=== PATIENT | female | born 1940 ===

== ENCOUNTER 2021-09-15 03:17 | Inpatient (IN) | payer MEDICARE ==
[2021-09-15 04:00] LABS: #Eosinphils 0.1 thou/uL (0.0-0.7); #Lymphocytes 0.6 thou/uL (1.20-3.40); #Monocytes 0.7 thou/uL (0.11-0.59); #Neutrophils 7.2 thou/uL (1.40-6.50); %Basophils 0.5 % (0.0-1.0); %Eosinophils 1.3 % (0.0-10.0); %Lymphocytes 6.7 % (21.0-51.0); %Monocytes 8.6 % (0.0-10.0); Hemoglobin 10.4 g/dL (12.0-16.0); Mean Corpuscular Hemoglobin 32.3 pg (27.0-31.0); Mean Platelet Volume 8.4 fL (7.4-10.4); Platelet Count 164 thou/uL (130-400); RBC Distribution Width 18.4 % (11.5-14.5); Red Blood Cell (RBC) Count 3.23 mill/uL (4.20-5.40); White Blood Cell (WBC) Count 8.6 thou/uL (4.8-10.8)
[2021-09-15 04:21] LABS: ALT (SGPT) 14 U/L (8-55); AST (SGOT) 33 U/L (5-34); Albumin 3.7 g/dL (3.4-4.8); Alkaline Phosphatase 84 U/L (40-110); Anion Gap 19 mmol/L (10-20); BUN (Urea Nitrogen) 48 mg/dL (9.8-20.1); Bilirubin, Total 1.1 mg/dL (0.2-1.2); Calc. Creatinine Clearance 0 mL/min (70-130); Calcium 9.6 mg/dL (7.8-10.44); Carbon Dioxide 24 mmol/L (23-31); Chloride 99 mmol/L (98-107); Globulin 3.9 g/dL (2.4-3.5); Glucose 118 mg/dL (83-110); Potassium 4.7 mmol/L (3.5-5.1); Protein, Total 7.6 g/dL (5.8-8.1); Sodium 137 mmol/L (136-145)
[2021-09-15] MEDS ORDERED: Cefepime 2 GM VIAL ONE (04:33)
[2021-09-15] MEDS ORDERED: Vancomycin 1 GM/200 ML BAG ONE (04:58)
[2021-09-15] MEDS ORDERED: Acetaminophen 500 MG TAB ONE (05:40)
[2021-09-15 08:13] LABS: SARS-CoV-2 NAA Rapid Test Not Detected (NotDetected)
[2021-09-15] MEDS ORDERED: hydrALAZINE 20 MG/ML VIAL SLOW IVP PRN (08:35)
[2021-09-15] MEDS ORDERED: Benzonatate 100 MG CAP PO PRN (08:35)
[2021-09-15] MEDS ORDERED: Vancomycin Hemodialysis Sliding Scale FS SCH (10:30)
[2021-09-15] MEDS: Heparin 5,000 UNITS/ML VIAL SC SCH ×3 (11:21→20:17)
[2021-09-15] MEDS: Acetaminophen 325 MG TAB PO PRN (15:17)
[2021-09-15] MEDS: Ondansetron ODT 4 MG TAB PO PRN (15:18)
[2021-09-15] MEDS ORDERED: methylPREDNISolone Sod Succ 40 MG VIAL ONE ×2 (15:48)
[2021-09-15] MEDS ORDERED: Morphine 4 MG/ML VIAL ONE (15:48)
[2021-09-15] MEDS: Propofol 1,000 MG/100 ML VIAL IV PRN ×2 (16:00→19:43)
[2021-09-15] MEDS ORDERED: methylPREDNISolone Sod Succ/PF 125 MG/2 ML VIAL IVP SCH (16:00)
[2021-09-15 16:06] LABS: Actual Bicarbonate (HCO3a) 30.2 mEq/L (22-28); Base Excess (BEa) 6.8 mEq/L (-2.0 to +3.0); CO2 Tension 38.3 mmHg (35.0-45.0); Calcium, Ionized (arterial) 1.11 mmol/L (1.12-1.30); Carboxyhemoglobin (COHb) 1.4 gm% (0.0-3.0); Hemoglobin (Hb) 9.9 g/dL (12.0-16.0); Potassium - ABG Lab 3.33 mmol/L (3.70-5.30); pH, Arterial 7.52 (7.35-7.45)
[2021-09-15 16:07] LABS: ALV-art Gradient 166.325 mmHg (0-20); Puncture Site RRA
[2021-09-15] MEDS ORDERED: Morphine 4 MG/ML VIAL SLOW IVP SCH (16:15)
[2021-09-15] MEDS ORDERED: methylPREDNISolone Sod Succ 40 MG VIAL IVP SCH (16:30)
[2021-09-15] MEDS ORDERED: Morphine 2 MG/ML VIAL SLOW IVP PRN (17:01)
[2021-09-15] MEDS ORDERED: Fentanyl 100 MCG/2 ML VIAL ONE (17:24)
[2021-09-15] MEDS ORDERED: Vancomycin 1 GM in Premix Bag 1 BAG IVPB SCH (18:00)
[2021-09-15 18:13] LABS: Actual Bicarbonate (HCO3a) 28.1 mEq/L (22-28); Base Excess (BEa) 2.4 mEq/L (-2.0 to +3.0); CO2 Tension 49.4 mmHg (35.0-45.0); Calcium, Ionized (arterial) 1.17 mmol/L (1.12-1.30); Carboxyhemoglobin (COHb) 1.1 gm% (0.0-3.0); Hemoglobin (Hb) 9.6 g/dL (12.0-16.0); O2 Tension (PaO2), arterial 73.5 mmHg (> 60.0); Potassium - ABG Lab 3.57 mmol/L (3.70-5.30); pH, Arterial 7.37 (7.35-7.45)
[2021-09-15 18:15] LABS: Puncture Site RRA
[2021-09-15] MEDS ORDERED: Propofol 1,000 MG/100 ML VIAL IV ONE (18:15)
[2021-09-15] MEDS ORDERED: DISCONTINUE PREVIOUS NARCOTIC PAIN MEDICATIONS AND BENZODIAZEPINES FS SCH (19:00)
[2021-09-15] MEDS ORDERED: Fentanyl 100 MCG/2 ML VIAL SLOW IVP SCH (19:00)
[2021-09-15] MEDS ORDERED: fentaNYL Citrate-0.9 % NaCl/PF 100 ML IVPB SCH (19:00)
[2021-09-15] MEDS ORDERED: PROPOFOL 200 MG/20 ML VIAL IV SCH (19:00)
[2021-09-15] MEDS ORDERED: Lorazepam 2 MG/ML VIAL SLOW IVP PRN (19:00)
[2021-09-15] MEDS ORDERED: Fentanyl BOLUS 250 ML IVPB PRN (19:00)
[2021-09-15] MEDS ORDERED: Propofol BOLUS 1,000 MG/100 ML VIAL IV PRN (19:00)
[2021-09-15] MEDS ORDERED: Rocuronium Bromide 50 MG/5 ML VIAL IVP SCH (19:00)
[2021-09-15] MEDS: Cefepime 1 GM in Sodium Chloride 0.9% 100 ML IVPB SCH (19:42)
[2021-09-15] MEDS: Morphine 2 MG/ML VIAL SLOW IVP PRN (22:58)
[2021-09-15] MEDS: methylPREDNISolone Sod Succ 40 MG VIAL IVP SCH (23:27)
[2021-09-16 04:10] LABS: #Lymphocytes 0.4 thou/uL (1.20-3.40); #Monocytes 0.1 thou/uL (0.11-0.59); #Neutrophils 4.3 thou/uL (1.40-6.50); %Basophils 0.1 % (0.0-1.0); %Eosinophils 0.5 % (0.0-10.0); %Lymphocytes 7.3 % (21.0-51.0); %Neutrophils 90.2 % (42.0-75.0); Hemoglobin 8.6 g/dL (12.0-16.0); Mean Corpuscular HGB CONC 32.4 g/dL (32.0-36.0); Mean Corpuscular Hemoglobin 32.6 pg (27.0-31.0); Mean Platelet Volume 9.2 fL (7.4-10.4); Platelet Count 137 thou/uL (130-400); RBC Distribution Width 17.7 % (11.5-14.5); Red Blood Cell (RBC) Count 2.64 mill/uL (4.20-5.40); White Blood Cell (WBC) Count 4.8 thou/uL (4.8-10.8)
[2021-09-16 04:34] LABS: Anion Gap 16 mmol/L (10-20); BUN (Urea Nitrogen) 30 mg/dL (9.8-20.1); Calc. Creatinine Clearance 9 mL/min (70-130); Calcium 8.9 mg/dL (7.8-10.44); Carbon Dioxide 25 mmol/L (23-31); Chloride 98 mmol/L (98-107); Glucose 154 mg/dL (83-110); Potassium 4.2 mmol/L (3.5-5.1); Sodium 135 mmol/L (136-145)
[2021-09-16] MEDS: Morphine 2 MG/ML VIAL SLOW IVP PRN (04:42)
[2021-09-16] MEDS: Cefepime 1 GM in Sodium Chloride 0.9% 100 ML IVPB SCH (04:46)
[2021-09-16] MEDS: methylPREDNISolone Sod Succ 40 MG VIAL IVP SCH ×3 (05:44→18:14)
[2021-09-16 07:19] LABS: Actual Bicarbonate (HCO3a) 27.8 mEq/L (22-28); Base Excess (BEa) 3.4 mEq/L (-2.0 to +3.0); CO2 Tension 41.8 mmHg (35.0-45.0); Calcium, Ionized (arterial) 1.13 mmol/L (1.12-1.30); Carboxyhemoglobin (COHb) 1.4 gm% (0.0-3.0); O2 Tension (PaO2), arterial 73.9 mmHg (> 60.0); Potassium - ABG Lab 4.13 mmol/L (3.70-5.30); pH, Arterial 7.44 (7.35-7.45)
[2021-09-16 07:27] LABS: Puncture Site LRA
[2021-09-16] MEDS: Heparin 5,000 UNITS/ML VIAL SC SCH ×3 (09:20→21:44)
[2021-09-16] MEDS: Pantoprazole 40 MG VIAL IVP SCH (09:21)
[2021-09-16] MEDS: Propofol 1,000 MG/100 ML VIAL IV PRN (21:43)
[2021-09-16] MEDS: Metoprolol Tartrate 25 MG TAB PO SCH (21:44)
[2021-09-17] MEDS: Acetaminophen 325 MG TAB PO PRN (00:30)
[2021-09-17] MEDS: methylPREDNISolone Sod Succ 40 MG VIAL IVP SCH ×4 (00:30→20:43)
[2021-09-17 03:48] LABS: #Lymphocytes 0.4 thou/uL (1.20-3.40); #Monocytes 0.3 thou/uL (0.11-0.59); #Neutrophils 6.6 thou/uL (1.40-6.50); %Eosinophils 0.1 % (0.0-10.0); %Lymphocytes 4.8 % (21.0-51.0); %Monocytes 4.4 % (0.0-10.0); %Neutrophils 90.7 % (42.0-75.0); Hemoglobin 7.7 g/dL (12.0-16.0); Mean Corpuscular HGB CONC 32.1 g/dL (32.0-36.0); Mean Corpuscular Hemoglobin 32.1 pg (27.0-31.0); Mean Platelet Volume 9.5 fL (7.4-10.4); Platelet Count 160 thou/uL (130-400); RBC Distribution Width 17.5 % (11.5-14.5); White Blood Cell (WBC) Count 7.3 thou/uL (4.8-10.8)
[2021-09-17 03:59] LABS: Anion Gap 20 mmol/L (10-20); BUN (Urea Nitrogen) 66 mg/dL (9.8-20.1); Calc. Creatinine Clearance 7 mL/min (70-130); Calcium 8.3 mg/dL (7.8-10.44); Carbon Dioxide 21 mmol/L (23-31); Chloride 97 mmol/L (98-107); Glucose 118 mg/dL (83-110); Potassium 4.7 mmol/L (3.5-5.1); Sodium 133 mmol/L (136-145)
[2021-09-17] MEDS: Cefepime 1 GM in Sodium Chloride 0.9% 100 ML IVPB SCH (05:16)
[2021-09-17 06:52] LABS: Vancomycin, Random 10.4 ug/mL (See Comment)
[2021-09-17 07:20] LABS: Actual Bicarbonate (HCO3a) 23.5 mEq/L (22-28); Base Excess (BEa) -0.5 mEq/L (-2.0 to +3.0); CO2 Tension 35.4 mmHg (35.0-45.0); Calcium, Ionized (arterial) 1.02 mmol/L (1.12-1.30); Carboxyhemoglobin (COHb) 1.5 gm% (0.0-3.0); Hemoglobin (Hb) 7.4 g/dL (12.0-16.0); O2 Tension (PaO2), arterial 110.3 mmHg (> 60.0); Potassium - ABG Lab 4.54 mmol/L (3.70-5.30); pH, Arterial 7.44 (7.35-7.45)
[2021-09-17 07:39] LABS: Puncture Site RRA
[2021-09-17] MEDS: Heparin 5,000 UNITS/ML VIAL SC SCH ×3 (08:53→20:42)
[2021-09-17] MEDS: Pantoprazole 40 MG VIAL IVP SCH (08:53)
[2021-09-17] MEDS: Metoprolol Tartrate 25 MG TAB PO SCH (09:24)
[2021-09-17] MEDS ORDERED: Heparin 10,000 UNITS/ 10 ML VIAL ONE (10:34)
[2021-09-17] MEDS ORDERED: DC Sedation Protocol FS ONE (15:23)
[2021-09-17] MEDS ORDERED: Vancomycin HCl 500 MG in Sodium Chloride 0.9% 100 ML IVPB SCH (17:00)
[2021-09-18] MEDS: Metoprolol Tartrate 25 MG TAB PO SCH ×3 (00:49→21:01)
[2021-09-18 03:36] LABS: #Lymphocytes 0.4 thou/uL (1.20-3.40); #Monocytes 0.4 thou/uL (0.11-0.59); #Neutrophils 7.6 thou/uL (1.40-6.50); %Eosinophils 0.1 % (0.0-10.0); %Lymphocytes 4.8 % (21.0-51.0); %Monocytes 4.7 % (0.0-10.0); %Neutrophils 90.5 % (42.0-75.0); Hemoglobin 8.6 g/dL (12.0-16.0); Mean Corpuscular HGB CONC 32.1 g/dL (32.0-36.0); Mean Corpuscular Hemoglobin 31.8 pg (27.0-31.0); Mean Corpuscular Volume 99.3 fL (78.0-98.0); Mean Platelet Volume 9.1 fL (7.4-10.4); Platelet Count 198 thou/uL (130-400); RBC Distribution Width 17.4 % (11.5-14.5); Red Blood Cell (RBC) Count 2.69 mill/uL (4.20-5.40); White Blood Cell (WBC) Count 8.4 thou/uL (4.8-10.8)
[2021-09-18 03:55] LABS: Anion Gap 16 mmol/L (10-20); BUN (Urea Nitrogen) 55 mg/dL (9.8-20.1); Calc. Creatinine Clearance 9 mL/min (70-130); Calcium 7.8 mg/dL (7.8-10.44); Carbon Dioxide 26 mmol/L (23-31); Chloride 97 mmol/L (98-107); Glucose 109 mg/dL (83-110); Potassium 4.3 mmol/L (3.5-5.1); Sodium 135 mmol/L (136-145)
[2021-09-18] MEDS: Cefepime 1 GM in Sodium Chloride 0.9% 100 ML IVPB SCH (05:10)
[2021-09-18] MEDS: methylPREDNISolone Sod Succ 40 MG VIAL IVP SCH (08:27)
[2021-09-18] MEDS: Heparin 5,000 UNITS/ML VIAL SC SCH ×3 (08:27→22:46)
[2021-09-18 16:54] LABS: ANA Symphony (Qualitative) Negative (Negative); ANA Symphony (Quantitative) 0.3 Ratio (< 0.7 Negative); dsDNA IgG Antibody 1.7 IU/mL (<10 Negative)
[2021-09-18 19:21] LABS: CCP IgG Antibody 1.1 EliAU/mL (<7 Negative); EliA RAS New Method **** NEW METHOD ****; Rheumatoid Factor IgA Antibody 4.7 IU/mL (<14 Negative); Rheumatoid Factor IgM Antibody 1.1 IU/mL (<3.5 Negative)
[2021-09-18] MEDS: Amlodipine 5 MG TAB PO SCH (21:00)
[2021-09-19 04:21] LABS: #Lymphocytes 1.1 thou/uL (1.20-3.40); #Neutrophils 8.4 thou/uL (1.40-6.50); %Basophils 0.1 % (0.0-1.0); %Eosinophils 0.1 % (0.0-10.0); %Lymphocytes 10.3 % (21.0-51.0); %Monocytes 9.7 % (0.0-10.0); %Neutrophils 79.7 % (42.0-75.0); Hemoglobin 9.8 g/dL (12.0-16.0); Mean Corpuscular HGB CONC 31.8 g/dL (32.0-36.0); Mean Corpuscular Hemoglobin 31.6 pg (27.0-31.0); Mean Corpuscular Volume 99.4 fL (78.0-98.0); Platelet Count 252 thou/uL (130-400); RBC Distribution Width 16.9 % (11.5-14.5); White Blood Cell (WBC) Count 10.6 thou/uL (4.8-10.8)
[2021-09-19 04:41] LABS: Anion Gap 23 mmol/L (10-20); BUN (Urea Nitrogen) 82 mg/dL (9.8-20.1); Calc. Creatinine Clearance 6 mL/min (70-130); Calcium 8.4 mg/dL (7.8-10.44); Carbon Dioxide 19 mmol/L (23-31); Chloride 97 mmol/L (98-107); Glucose 85 mg/dL (83-110); Potassium 4.5 mmol/L (3.5-5.1); Sodium 134 mmol/L (136-145)
[2021-09-19] MEDS ORDERED: Cepastat Lozenges 1 LOZ PO SCH (10:15)
[2021-09-19] MEDS: Acetaminophen 325 MG TAB PO PRN ×3 (10:26→20:08)
[2021-09-19] MEDS: Ondansetron ODT 4 MG TAB PO PRN (10:27)
[2021-09-19] MEDS: Amlodipine 5 MG TAB PO SCH ×2 (10:29→21:08)
[2021-09-19] MEDS: Cefdinir 300 MG CAP PO SCH (10:29)
[2021-09-19] MEDS: Allopurinol 100 MG TAB PO SCH (10:30)
[2021-09-19] MEDS: Metoprolol Tartrate 25 MG TAB PO SCH ×2 (10:30→21:09)
[2021-09-19] MEDS: Heparin 5,000 UNITS/ML VIAL SC SCH ×3 (10:31→20:09)
[2021-09-19] MEDS: Cepastat Lozenges 1 LOZ PO PRN (20:09)
[2021-09-20] MEDS: Acetaminophen 325 MG TAB PO PRN (04:07)
[2021-09-20] MEDS: Ondansetron ODT 4 MG TAB PO PRN (04:11)
[2021-09-20 04:49] LABS: #Eosinphils 0.1 thou/uL (0.0-0.7); #Lymphocytes 0.9 thou/uL (1.20-3.40); #Monocytes 0.7 thou/uL (0.11-0.59); #Neutrophils 8.2 thou/uL (1.40-6.50); %Eosinophils 0.8 % (0.0-10.0); %Lymphocytes 9.4 % (21.0-51.0); %Monocytes 7.3 % (0.0-10.0); %Neutrophils 82.6 % (42.0-75.0); Hemoglobin 9.7 g/dL (12.0-16.0); Mean Corpuscular HGB CONC 32.1 g/dL (32.0-36.0); Mean Corpuscular Hemoglobin 31.7 pg (27.0-31.0); Mean Corpuscular Volume 98.8 fL (78.0-98.0); Mean Platelet Volume 9.2 fL (7.4-10.4); Platelet Count 239 thou/uL (130-400); RBC Distribution Width 16.8 % (11.5-14.5); Red Blood Cell (RBC) Count 3.05 mill/uL (4.20-5.40); White Blood Cell (WBC) Count 9.9 thou/uL (4.8-10.8)
[2021-09-20 05:15] LABS: Anion Gap 21 mmol/L (10-20); BUN (Urea Nitrogen) 111 mg/dL (9.8-20.1); Calc. Creatinine Clearance 5 mL/min (70-130); Calcium 8.6 mg/dL (7.8-10.44); Carbon Dioxide 22 mmol/L (23-31); Chloride 98 mmol/L (98-107); Glucose 102 mg/dL (83-110); Potassium 4.9 mmol/L (3.5-5.1); Sodium 136 mmol/L (136-145)
[2021-09-20] MEDS: Cefdinir 300 MG CAP PO SCH (09:36)
[2021-09-20] MEDS: Amlodipine 5 MG TAB PO SCH (09:36)
[2021-09-20] MEDS: Allopurinol 100 MG TAB PO SCH (09:36)
[2021-09-20] MEDS: Metoprolol Tartrate 25 MG TAB PO SCH (09:37)
[2021-09-20] MEDS: Heparin 5,000 UNITS/ML VIAL SC SCH ×3 (09:37→20:44)
[2021-09-20 10:37] LABS: Glomerular Basmt Membrane ABS 3 units (0-20)
[2021-09-20] MEDS ORDERED: guaiFENesin/DM ER PO SCH (13:45)
[2021-09-20] MEDS: guaiFENesin/DM ER PO SCH (20:44)
[2021-09-21] MEDS: Ondansetron ODT 4 MG TAB PO PRN (10:01)
[2021-09-21] MEDS: guaiFENesin/DM ER PO SCH ×2 (10:01→20:57)
[2021-09-21] MEDS: Heparin 5,000 UNITS/ML VIAL SC SCH ×3 (10:02→20:55)
[2021-09-21] MEDS: Amlodipine 5 MG TAB PO SCH (10:02)
[2021-09-21] MEDS: Cefdinir 300 MG CAP PO SCH (10:02)
[2021-09-21] MEDS: Allopurinol 100 MG TAB PO SCH ×2 (10:03→10:06)
[2021-09-21] MEDS ORDERED: tiZANidine HCl 4 MG TAB PO SCH (12:00)
[2021-09-21] MEDS ORDERED: Cyclobenzaprine 10 MG TAB PO SCH (15:00)
[2021-09-21] MEDS ORDERED: traMADol HCl 50 MG TAB PO PRN (18:17)
[2021-09-21] MEDS: traMADol HCl 50 MG TAB PO PRN (18:53)
[2021-09-22] MEDS: Allopurinol 100 MG TAB PO SCH (09:01)
[2021-09-22] MEDS: tiZANidine HCl 4 MG TAB PO SCH (09:01)
[2021-09-22] MEDS: guaiFENesin/DM ER PO SCH ×2 (09:01→20:07)
[2021-09-22] MEDS: Cefdinir 300 MG CAP PO SCH (09:02)
[2021-09-22] MEDS: Amlodipine 5 MG TAB PO SCH (09:02)
[2021-09-22] MEDS: Heparin 5,000 UNITS/ML VIAL SC SCH ×3 (09:02→20:07)
[2021-09-22] MEDS: Cepastat Lozenges 1 LOZ PO PRN ×3 (09:03→23:19)
[2021-09-22] MEDS: Metoprolol Tartrate 25 MG TAB PO SCH (09:14)
[2021-09-22 11:58] LABS: SARS-CoV-2 PCR by NAA Not Detected (NotDetected)
[2021-09-22 12:25] LABS: #Eosinphils 0.1 thou/uL (0.0-0.7); #Lymphocytes 0.8 thou/uL (1.20-3.40); #Monocytes 0.5 thou/uL (0.11-0.59); #Neutrophils 7.4 thou/uL (1.40-6.50); %Basophils 0.1 % (0.0-1.0); %Eosinophils 1.4 % (0.0-10.0); %Lymphocytes 8.7 % (21.0-51.0); %Monocytes 5.6 % (0.0-10.0); %Neutrophils 84.2 % (42.0-75.0); Hemoglobin 8.1 g/dL (12.0-16.0); Mean Corpuscular HGB CONC 31.3 g/dL (32.0-36.0); Mean Corpuscular Hemoglobin 32.2 pg (27.0-31.0); Mean Platelet Volume 8.8 fL (7.4-10.4); Platelet Count 215 thou/uL (130-400); RBC Distribution Width 16.8 % (11.5-14.5); Red Blood Cell (RBC) Count 2.51 mill/uL (4.20-5.40); White Blood Cell (WBC) Count 8.8 thou/uL (4.8-10.8)
[2021-09-22] MEDS ORDERED: HYDROCORTISONE SOD SUCC IVPB SCH (12:37)
[2021-09-22] MEDS ORDERED: SODIUM CHLORIDE 0.45% IVPB SCH (12:37)
[2021-09-22 12:48] LABS: Anion Gap 16 mmol/L (10-20); BUN (Urea Nitrogen) 46 mg/dL (9.8-20.1); Calc. Creatinine Clearance 6 mL/min (70-130); Calcium 8.8 mg/dL (7.8-10.44); Carbon Dioxide 26 mmol/L (23-31); Chloride 99 mmol/L (98-107); Glucose 112 mg/dL (83-110); Potassium 3.7 mmol/L (3.5-5.1); Sodium 137 mmol/L (136-145)
[2021-09-22 14:16] LABS: Cytoplasmic (C-ANCA) <1:20 titer (Neg:<1:20); Myeloperoxidase AutoAbs 94.9 U/mL (0.0-9.0); Proteinase-3 AutoAbs Less than 3.5 U/mL (0.0-3.5)
[2021-09-22] MEDS: methylPREDNISolone Sod Succ 40 MG VIAL IVP SCH ×2 (16:33→23:18)
[2021-09-23 03:40] LABS: Hemoglobin 8.3 g/dL (12.0-16.0)
[2021-09-23] MEDS: methylPREDNISolone Sod Succ 40 MG VIAL IVP SCH (05:02)
[2021-09-23] MEDS: Heparin 5,000 UNITS/ML VIAL SC SCH ×3 (09:40→21:00)
[2021-09-23] MEDS: Cefdinir 300 MG CAP PO SCH (09:40)
[2021-09-23] MEDS: Allopurinol 100 MG TAB PO SCH (09:40)
[2021-09-23] MEDS: Ondansetron ODT 4 MG TAB PO PRN (09:41)
[2021-09-23] MEDS: guaiFENesin/DM ER PO SCH ×2 (09:41→21:00)
[2021-09-23] MEDS: tiZANidine HCl 4 MG TAB PO SCH (09:42)
[2021-09-23] MEDS ORDERED: Communication Order-Pharmacy FS SCH (09:45)
[2021-09-23 11:33] VITALS: BMI 18.8
[2021-09-23] MEDS ORDERED: tiZANidine HCl 4 MG TAB PO SCH (12:00)
[2021-09-23] MEDS: traMADol HCl 50 MG TAB PO PRN (13:37)
[2021-09-24 09:09] LABS: #Eosinphils 0.2 thou/uL (0.0-0.7); #Monocytes 0.7 thou/uL (0.11-0.59); %Basophils 0.2 % (0.0-1.0); %Eosinophils 1.9 % (0.0-10.0); %Lymphocytes 11.7 % (21.0-51.0); %Monocytes 7.6 % (0.0-10.0); %Neutrophils 78.6 % (42.0-75.0); Mean Corpuscular HGB CONC 32.1 g/dL (32.0-36.0); Mean Corpuscular Hemoglobin 32.6 pg (27.0-31.0); Mean Platelet Volume 8.1 fL (7.4-10.4); Platelet Count 306 thou/uL (130-400); RBC Distribution Width 16.8 % (11.5-14.5); Red Blood Cell (RBC) Count 2.45 mill/uL (4.20-5.40); White Blood Cell (WBC) Count 8.9 thou/uL (4.8-10.8)
[2021-09-24] MEDS ORDERED: Iopamidol 370 76% 100 ML VIAL ONE (09:24)
[2021-09-24 09:43] LABS: ALT (SGPT) 8 U/L (8-55); AST (SGOT) 10 U/L (5-34); Albumin 3.1 g/dL (3.4-4.8); Alkaline Phosphatase 57 U/L (40-110); Anion Gap 18 mmol/L (10-20); BUN (Urea Nitrogen) 84 mg/dL (9.8-20.1); Bilirubin, Total 0.4 mg/dL (0.2-1.2); Calc. Creatinine Clearance 4 mL/min (70-130); Calcium 8.7 mg/dL (7.8-10.44); Carbon Dioxide 25 mmol/L (23-31); Chloride 97 mmol/L (98-107); Globulin 3.3 g/dL (2.4-3.5); Glucose 83 mg/dL (83-110); Potassium 4.4 mmol/L (3.5-5.1); Protein, Total 6.4 g/dL (5.8-8.1); Sodium 136 mmol/L (136-145)
[2021-09-24 09:48] LABS: HBSAg Index 0.18 S/CO (0-0.99); Hep B Surf Ag Non-Reactive S/CO (NonReactive)
[2021-09-24 09:55] LABS: HBSAB Concentration 33.84 mIU/mL; Hep B Surf AB Reactive (NonReactive)
[2021-09-24] MEDS ORDERED: Lidocaine 1% (PF) 30 ML VIAL ONE (10:16)
[2021-09-24] MEDS: Heparin 5,000 UNITS/ML VIAL SC SCH ×3 (14:55→21:17)
[2021-09-24] MEDS ORDERED: Epoetin (ESRD) 20,000 UNITS/ML SC SCH (15:00)
[2021-09-24] MEDS: tiZANidine HCl 4 MG TAB PO SCH (16:54)
[2021-09-24] MEDS: Allopurinol 100 MG TAB PO SCH (16:55)
[2021-09-24] MEDS: predniSONE 20 MG TAB PO SCH (16:55)
[2021-09-24] MEDS: Cefdinir 300 MG CAP PO SCH (16:55)
[2021-09-24] MEDS: guaiFENesin/DM ER PO SCH ×2 (16:56→21:17)
[2021-09-24] MEDS: Cepastat Lozenges 1 LOZ PO PRN (21:18)
[2021-09-24] MEDS: Atorvastatin Calcium 40 MG TAB PO SCH (21:18)
[2021-09-25 05:20] LABS: Cardiac Risk 3.9 (Less than 4.5)
[2021-09-25] MEDS ORDERED: Polyethylene Glycol 3350 17 GM Packet PO PRN (08:51)
[2021-09-25] MEDS: Folic Acid/Vit B Comp W-C PO SCH (09:52)
[2021-09-25] MEDS: Senokot S 8.6-50 MG TAB PO SCH ×2 (09:52→20:30)
[2021-09-25] MEDS: Allopurinol 100 MG TAB PO SCH (09:52)
[2021-09-25] MEDS: Cefdinir 300 MG CAP PO SCH (09:52)
[2021-09-25] MEDS: predniSONE 20 MG TAB PO SCH (09:53)
[2021-09-25] MEDS: guaiFENesin/DM ER PO SCH ×2 (09:53→20:27)
[2021-09-25] MEDS: tiZANidine HCl 4 MG TAB PO SCH (09:56)
[2021-09-25] MEDS: Amlodipine 5 MG TAB PO SCH ×2 (09:56→20:29)
[2021-09-25] MEDS: Heparin 5,000 UNITS/ML VIAL SC SCH ×3 (09:57→20:27)
[2021-09-25] MEDS: Sodium Chloride 0.65% Nasal 44 ML BOT EA NARE SCH ×2 (13:37→16:04)
[2021-09-25] MEDS: Cepastat Lozenges 1 LOZ PO PRN (13:55)
[2021-09-25] MEDS: traMADol HCl 50 MG TAB PO PRN (14:43)
[2021-09-25] MEDS: Atorvastatin Calcium 40 MG TAB PO SCH (20:30)
[2021-09-26] MEDS: Sodium Chloride 0.65% Nasal 44 ML BOT EA NARE SCH ×4 (00:27→20:43)
[2021-09-26] MEDS: Cepastat Lozenges 1 LOZ PO PRN ×4 (01:40→21:27)
[2021-09-26 04:47] LABS: Anion Gap 19 mmol/L (10-20); BUN (Urea Nitrogen) 60 mg/dL (9.8-20.1); Calc. Creatinine Clearance 5 mL/min (70-130); Calcium 8.6 mg/dL (7.8-10.44); Carbon Dioxide 25 mmol/L (23-31); Chloride 101 mmol/L (98-107); Glucose 108 mg/dL (83-110); Potassium 4.5 mmol/L (3.5-5.1); Sodium 140 mmol/L (136-145)
[2021-09-26 05:12] LABS: Band 8 % (5-11); Hemoglobin 7.8 g/dL (12.0-16.0); Lymphocytes 14 % (21-51); MDiff Complete? YES; Mean Corpuscular HGB CONC 32.3 g/dL (32.0-36.0); Mean Corpuscular Hemoglobin 32.8 pg (27.0-31.0); Mean Platelet Volume 8.4 fL (7.4-10.4); Monocytes 7 % (0-10); Myelocyte 1 % (0-0); Neutrophil 70 % (42-75); Platelet Count 269 thou/uL (130-400); Red Blood Cell (RBC) Count 2.38 mill/uL (4.20-5.40); White Blood Cell (WBC) Count 8.2 thou/uL (4.8-10.8)
[2021-09-26] MEDS: Allopurinol 100 MG TAB PO SCH (08:29)
[2021-09-26] MEDS: guaiFENesin/DM ER PO SCH ×2 (08:29→20:43)
[2021-09-26] MEDS: Heparin 5,000 UNITS/ML VIAL SC SCH ×2 (08:29→20:43)
[2021-09-26] MEDS: Cefdinir 300 MG CAP PO SCH (08:29)
[2021-09-26] MEDS: tiZANidine HCl 4 MG TAB PO SCH (08:30)
[2021-09-26] MEDS: predniSONE 20 MG TAB PO SCH (08:30)
[2021-09-26] MEDS: Senokot S 8.6-50 MG TAB PO SCH ×2 (08:30→20:43)
[2021-09-26] MEDS: Folic Acid/Vit B Comp W-C PO SCH (08:30)
[2021-09-26] MEDS: traMADol HCl 50 MG TAB PO PRN ×2 (09:31→21:27)
[2021-09-26] MEDS ORDERED: Sodium Chloride 0.65% Nasal 44 ML BOT EA NARE SCH (12:30)
[2021-09-26] MEDS: Atorvastatin Calcium 40 MG TAB PO SCH (20:43)
[2021-09-26] MEDS: Amlodipine 5 MG TAB PO SCH (20:44)
[2021-09-27 04:48] LABS: Anion Gap 21 mmol/L (10-20); BUN (Urea Nitrogen) 76 mg/dL (9.8-20.1); Calc. Creatinine Clearance 4 mL/min (70-130); Calcium 8.5 mg/dL (7.8-10.44); Carbon Dioxide 23 mmol/L (23-31); Chloride 98 mmol/L (98-107); Glucose 101 mg/dL (83-110); Potassium 4.7 mmol/L (3.5-5.1); Sodium 137 mmol/L (136-145)
[2021-09-27] MEDS: Folic Acid/Vit B Comp W-C PO SCH (08:50)
[2021-09-27] MEDS: predniSONE 20 MG TAB PO SCH (08:50)
[2021-09-27] MEDS: Allopurinol 100 MG TAB PO SCH (08:51)
[2021-09-27] MEDS: guaiFENesin/DM ER PO SCH ×2 (08:51→20:15)
[2021-09-27] MEDS: Heparin 5,000 UNITS/ML VIAL SC SCH ×2 (08:51→20:15)
[2021-09-27] MEDS: Senokot S 8.6-50 MG TAB PO SCH ×2 (08:51→20:15)
[2021-09-27] MEDS: tiZANidine HCl 4 MG TAB PO SCH (08:51)
[2021-09-27] MEDS: Sodium Chloride 0.65% Nasal 44 ML BOT EA NARE SCH ×3 (08:52→20:16)
[2021-09-27] MEDS: Amlodipine 5 MG TAB PO SCH (20:15)
[2021-09-27] MEDS: Atorvastatin Calcium 40 MG TAB PO SCH (20:15)
[2021-09-28 05:15] LABS: Anion Gap 17 mmol/L (10-20); BUN (Urea Nitrogen) 40 mg/dL (9.8-20.1); Calc. Creatinine Clearance 7 mL/min (70-130); Calcium 8.6 mg/dL (7.8-10.44); Carbon Dioxide 25 mmol/L (23-31); Chloride 98 mmol/L (98-107); Glucose 112 mg/dL (83-110); Potassium 4.4 mmol/L (3.5-5.1); Sodium 136 mmol/L (136-145)
[2021-09-28 05:46] LABS: Band 9 % (5-11); Eosinophils 1 % (0-10); Hemoglobin 8.6 g/dL (12.0-16.0); Lymphocytes 12 % (21-51); MDiff Complete? YES; Mean Corpuscular HGB CONC 31.5 g/dL (32.0-36.0); Mean Corpuscular Hemoglobin 32.2 pg (27.0-31.0); Monocytes 7 % (0-10); Neutrophil 71 % (42-75); Platelet Count 351 thou/uL (130-400); RBC Distribution Width 17.6 % (11.5-14.5); Red Blood Cell (RBC) Count 2.67 mill/uL (4.20-5.40); White Blood Cell (WBC) Count 13.4 thou/uL (4.8-10.8)
[2021-09-28] MEDS ORDERED: predniSONE 20 MG TAB PO SCH (08:00)
[2021-09-28] MEDS: Heparin 5,000 UNITS/ML VIAL SC SCH (08:41)
[2021-09-28] MEDS: guaiFENesin/DM ER PO SCH (08:41)
[2021-09-28] MEDS: Allopurinol 100 MG TAB PO SCH (08:41)
[2021-09-28] MEDS: Folic Acid/Vit B Comp W-C PO SCH (08:41)
[2021-09-28] MEDS: Senokot S 8.6-50 MG TAB PO SCH (08:41)
[2021-09-28] MEDS: tiZANidine HCl 4 MG TAB PO SCH (08:41)
[2021-09-28] MEDS: Sodium Chloride 0.65% Nasal 44 ML BOT EA NARE SCH ×2 (08:42→16:12)
[2021-09-28 15:26] VITALS: BP 162/68; TEMP 98.4
[2021-09-28] MEDS: traMADol HCl 50 MG TAB PO PRN (16:19)
== END 2021-09-28 18:02 | disposition home health service (06) | DRG 286 ==
LOC: ERS 03:17 → 2NO 06:30 → CCU 15:49 → 2NO 09-18 12:08 → CCU 09-22 10:48 → 2NO 09-23 15:04
PROVIDERS: ADMIT Internal Medicine; ATTEND Internal Medicine
PROC: 5A1945Z Respiratory Ventilation, 24-96 Consecutive Hours (ICD-10-PCS; principal; 2021-09-15)
PROC: 0BH18EZ Insertion of Endotracheal Airway into Trachea, Via Natural or Artificial Opening Endoscopic (ICD-10-PCS; 2021-09-15)
PROC: 5A09357 Assistance with Respiratory Ventilation, Less than 24 Consecutive Hours, Continuous Positive Airway Pressure (ICD-10-PCS; 2021-09-15)
PROC: 5A1D70Z Performance of Urinary Filtration, Intermittent, Less than 6 Hours Per Day (ICD-10-PCS; 2021-09-15)
PROC: 4A023N7 Measurement of Cardiac Sampling and Pressure, Left Heart, Percutaneous Approach (ICD-10-PCS; 2021-09-24)
PROC: B2111ZZ Fluoroscopy of Multiple Coronary Arteries using Low Osmolar Contrast (ICD-10-PCS; 2021-09-24)
PROC: B2151ZZ Fluoroscopy of Left Heart using Low Osmolar Contrast (ICD-10-PCS; 2021-09-24)
DX: I13.2 Hypertensive heart and chronic kidney disease with heart failure and with stage 5 chronic kidney disease, or end stage renal disease (principal); J15.6 Pneumonia due to other Gram-negative bacteria; J80 Acute respiratory distress syndrome; N18.6 End stage renal disease; I50.33 Acute on chronic diastolic (congestive) heart failure; E87.1 Hypo-osmolality and hyponatremia; I47.1 Supraventricular tachycardia; E27.40 Unspecified adrenocortical insufficiency; Z20.822 Contact with and (suspected) exposure to COVID-19; E03.9 Hypothyroidism, unspecified; I25.10 Atherosclerotic heart disease of native coronary artery without angina pectoris; I77.6 Arteritis, unspecified; D63.1 Anemia in chronic kidney disease; G89.29 Other chronic pain; M54.50 Low back pain, unspecified; E88.09 Other disorders of plasma-protein metabolism, not elsewhere classified; I08.0 Rheumatic disorders of both mitral and aortic valves; I95.3 Hypotension of hemodialysis; I49.3 Ventricular premature depolarization; Z78.1 Physical restraint status; Z99.2 Dependence on renal dialysis; Z87.01 Personal history of pneumonia (recurrent); Z88.8 Allergy status to other drugs, medicaments and biological substances; Z90.89 Acquired absence of other organs; Z90.49 Acquired absence of other specified parts of digestive tract; Z90.710 Acquired absence of both cervix and uterus; Z82.49 Family history of ischemic heart disease and other diseases of the circulatory system; Z80.42 Family history of malignant neoplasm of prostate; Z79.899 Other long term (current) drug therapy
CPT/HCPCS: 36415; 36600; 71045; 80048; 80053; 80061; 80202; 82607; 82746; 82805; 83516; 83520; 83605; 83880; 84145; 84484; 85014; 85018; 85025; 85379; 86037; 86038; 86140; 86200; 86225; 86706; 87040; 87340; 90935; 93005; 93306; 93458; 93798; 93970; 94002; 94003; 94640; 94660; 94760; 96374; 96375; C9113; G0257; J0360; J0692; J1644; J1720; J2001; J2270; J2704; J2920; J3010; J3370; J3490; J7512; J7620; Q0162; Q4081; Q9967; U0003; U0005

== ENCOUNTER 2021-10-04 16:45 | Inpatient (IN) | payer MEDICARE ==
[2021-10-04 17:15] LABS: #Lymphocytes 0.6 thou/uL (1.20-3.40); #Monocytes 0.3 thou/uL (0.11-0.59); #Neutrophils 13.4 thou/uL (1.40-6.50); %Basophils 0.2 % (0.0-1.0); %Eosinophils 0.1 % (0.0-10.0); %Lymphocytes 4.2 % (21.0-51.0); %Monocytes 1.9 % (0.0-10.0); %Neutrophils 93.6 % (42.0-75.0); Hemoglobin 9.4 g/dL (12.0-16.0); Mean Corpuscular HGB CONC 30.6 g/dL (32.0-36.0); Mean Corpuscular Hemoglobin 33.3 pg (27.0-31.0); Mean Platelet Volume 7.9 fL (7.4-10.4); Platelet Count 241 thou/uL (130-400); RBC Distribution Width 22.1 % (11.5-14.5); Red Blood Cell (RBC) Count 2.82 mill/uL (4.20-5.40); White Blood Cell (WBC) Count 14.3 thou/uL (4.8-10.8)
[2021-10-04 17:30] LABS: Anisocytosis MODERATE=16-30 cells (100X) (0-5/hpf); Basophilic Stippling SLIGHT = 1-2 cells (100X) (None Seen); MDiff Complete? YES; Macrocytosis SLIGHT = 6-15 cells (100X) (0-5/hpf); Ovalocytes SLIGHT = 2-5 cells (100X) (0-1/hpf); Platelet Morphology Comment Appears Adequate; Polychromasia MODERATE = 3-4 cells (100X) (0-2/hpf)
[2021-10-04 17:38] LABS: ALT (SGPT) 12 U/L (8-55); AST (SGOT) 17 U/L (5-34); Albumin 3.6 g/dL (3.4-4.8); Alkaline Phosphatase 65 U/L (40-110); Anion Gap 21 mmol/L (10-20); BUN (Urea Nitrogen) 63 mg/dL (9.8-20.1); Bilirubin, Total 0.7 mg/dL (0.2-1.2); Calc. Creatinine Clearance 0 mL/min (70-130); Calcium 8.2 mg/dL (7.8-10.44); Carbon Dioxide 19 mmol/L (23-31); Chloride 104 mmol/L (98-107); Globulin 3.4 g/dL (2.4-3.5); Glucose 116 mg/dL (83-110); Potassium 5.3 mmol/L (3.5-5.1); Sodium 139 mmol/L (136-145)
[2021-10-04] MEDS ORDERED: Ondansetron PF 4 MG/2 ML Vial IVP PRN (19:23)
[2021-10-04] MEDS ORDERED: Acetaminophen 325 MG TAB PO PRN (19:23)
[2021-10-04] MEDS ORDERED: Melatonin 3 MG TAB PO PRN (19:30)
[2021-10-04] MEDS ORDERED: Pantoprazole 40 MG VIAL IVP SCH (21:00)
[2021-10-04] MEDS: Atorvastatin Calcium 20 MG TAB PO SCH (22:11)
[2021-10-04] MEDS: Heparin 5,000 UNITS/ML VIAL SC SCH (22:11)
[2021-10-04 23:09] VITALS: BMI 24.7
[2021-10-04] MEDS: tiZANidine HCl 4 MG TAB PO PRN (23:36)
[2021-10-05 05:25] LABS: #Eosinphils 0.2 thou/uL (0.0-0.7); #Lymphocytes 0.8 thou/uL (1.20-3.40); #Monocytes 0.6 thou/uL (0.11-0.59); #Neutrophils 7.6 thou/uL (1.40-6.50); %Basophils 0.2 % (0.0-1.0); %Eosinophils 2.2 % (0.0-10.0); %Neutrophils 82.7 % (42.0-75.0); Hemoglobin 8.1 g/dL (12.0-16.0); Mean Corpuscular HGB CONC 32.6 g/dL (32.0-36.0); Platelet Count 164 thou/uL (130-400); RBC Distribution Width 22.9 % (11.5-14.5); Red Blood Cell (RBC) Count 2.24 mill/uL (4.20-5.40); White Blood Cell (WBC) Count 9.2 thou/uL (4.8-10.8)
[2021-10-05 05:34] LABS: ALT (SGPT) 16 U/L (8-55); AST (SGOT) 20 U/L (5-34); Albumin 3.4 g/dL (3.4-4.8); Alkaline Phosphatase 61 U/L (40-110); Anion Gap 21 mmol/L (10-20); BUN (Urea Nitrogen) 70 mg/dL (9.8-20.1); Bilirubin, Total 0.7 mg/dL (0.2-1.2); Calc. Creatinine Clearance 5 mL/min (70-130); Calcium 7.9 mg/dL (7.8-10.44); Carbon Dioxide 19 mmol/L (23-31); Chloride 106 mmol/L (98-107); Globulin 3.1 g/dL (2.4-3.5); Glucose 80 mg/dL (83-110); Potassium 4.4 mmol/L (3.5-5.1); Protein, Total 6.5 g/dL (5.8-8.1); Sodium 142 mmol/L (136-145)
[2021-10-05] MEDS: Heparin 5,000 UNITS/ML VIAL SC SCH ×2 (08:09→20:58)
[2021-10-05] MEDS ORDERED: Heparin 10,000 UNITS/ 10 ML VIAL ONE ×2 (08:39→13:36)
[2021-10-05] MEDS ORDERED: Pantoprazole 40 MG VIAL IVP SCH (09:00)
[2021-10-05] MEDS ORDERED: ceFAZolin 2 GM/Dextrose 50 ML 2 GM in Premix Bag 1 BAG IVPB SCH ×2 (10:15→14:00)
[2021-10-05] MEDS ORDERED: CEFAZOLIN 2 GM in Sodium Chloride 0.9% 100 ML IVPB SCH (10:45)
[2021-10-05 11:38] LABS: SARS-CoV-2 PCR by NAA Not Detected (NotDetected)
[2021-10-05] MEDS ORDERED: Lidocaine 1% w/Epinephrine 1:100K 20 ML VIAL ONE (13:36)
[2021-10-05] MEDS ORDERED: Bupivacaine PF 0.5% 30 ML VIAL ONE (13:36)
[2021-10-05] MEDS ORDERED: fentaNYL Citrate/PF 100 MCG/2 ML SYRINGE ONE (13:44)
[2021-10-05] MEDS ORDERED: ceFAZolin (BATCH) 2 GM/100 ML BAG ONE (13:47)
[2021-10-05] MEDS ORDERED: PROPOFOL 200 MG/20 ML VIAL ONE (13:55)
[2021-10-05] MEDS ORDERED: tiZANidine HCl 4 MG TAB ONE (14:56)
[2021-10-05] MEDS: tiZANidine HCl 4 MG TAB PO PRN (14:57)
[2021-10-05] MEDS: Atorvastatin Calcium 20 MG TAB PO SCH (20:58)
[2021-10-06 04:53] LABS: #Lymphocytes 0.7 thou/uL (1.20-3.40); #Monocytes 0.7 thou/uL (0.11-0.59); #Neutrophils 13.3 thou/uL (1.40-6.50); %Basophils 0.1 % (0.0-1.0); %Eosinophils 0.3 % (0.0-10.0); %Lymphocytes 4.7 % (21.0-51.0); %Neutrophils 89.9 % (42.0-75.0); Hemoglobin 8.2 g/dL (12.0-16.0); Mean Corpuscular HGB CONC 31.2 g/dL (32.0-36.0); Mean Corpuscular Hemoglobin 34.3 pg (27.0-31.0); Mean Platelet Volume 7.6 fL (7.4-10.4); Platelet Count 195 thou/uL (130-400); RBC Distribution Width 21.1 % (11.5-14.5); White Blood Cell (WBC) Count 14.8 thou/uL (4.8-10.8)
[2021-10-06 04:56] LABS: Anion Gap 15 mmol/L (10-20); BUN (Urea Nitrogen) 25 mg/dL (9.8-20.1); Calc. Creatinine Clearance 10 mL/min (70-130); Calcium 7.8 mg/dL (7.8-10.44); Carbon Dioxide 27 mmol/L (23-31); Chloride 101 mmol/L (98-107); Glucose 90 mg/dL (83-110); Sodium 139 mmol/L (136-145)
[2021-10-06] MEDS ORDERED: Amlodipine 5 MG TAB PO SCH (09:00)
[2021-10-06] MEDS: Heparin 5,000 UNITS/ML VIAL SC SCH ×2 (09:49→21:16)
[2021-10-06] MEDS: Folic Acid/Vit B Comp W-C PO SCH (09:49)
[2021-10-06 12:25] LABS: Free T4 (Free Thyroxine) 0.71 ng/dL (0.70-1.48)
[2021-10-06] MEDS ORDERED: Bupivacaine 0.25% 10 ML VIAL ONE (12:57)
[2021-10-06] MEDS ORDERED: Lidocaine 1% w/Epinephrine 1:100K 20 ML VIAL ONE (12:57)
[2021-10-06] MEDS ORDERED: Heparin 5,000 UNITS/ML VIAL ONE (12:57)
[2021-10-06] MEDS ORDERED: Protamine Sulfate 250 MG/25 ML VIAL ONE (12:57)
[2021-10-06] MEDS ORDERED: Protamine Sulfate 50 MG/5 ML VIAL ONE (12:58)
[2021-10-06] MEDS ORDERED: fentaNYL Citrate/PF 100 MCG/2 ML SYRINGE ONE (13:01)
[2021-10-06] MEDS ORDERED: CEFAZOLIN 2 GM VIAL ONE (13:12)
[2021-10-06] MEDS ORDERED: Sodium Chloride 0.9% 100 ML ONE (13:12)
[2021-10-06] MEDS ORDERED: PHENYLEPHRINE-NS 100 MCG/ML 10 ML SYRINGE ONE (13:17)
[2021-10-06] MEDS ORDERED: Dexamethasone 20 MG/5 ML VIAL ONE (13:17)
[2021-10-06] MEDS ORDERED: Ondansetron PF 4 MG/2 ML Vial ONE (13:17)
[2021-10-06] MEDS: hydrALAZINE 20 MG/ML VIAL SLOW IVP PRN (19:00)
[2021-10-06] MEDS: HYDROcodone/Acetaminophen 5/325 mg Tablet PO PRN (19:00)
[2021-10-06] MEDS: Atorvastatin Calcium 20 MG TAB PO SCH (21:16)
[2021-10-06] MEDS: tiZANidine HCl 4 MG TAB PO PRN (21:16)
[2021-10-06] MEDS ORDERED: Cefepime 2 GM in Sodium Chloride 0.9% 100 ML IVPB SCH (21:36)
[2021-10-06] MEDS ORDERED: methylPREDNISolone Sod Succ/PF 125 MG/2 ML VIAL IVP SCH (21:38)
[2021-10-06] MEDS ORDERED: methylPREDNISolone Sod Succ 40 MG VIAL IVP SCH (21:40)
[2021-10-06] MEDS ORDERED: Cefepime 1 GM in Sodium Chloride 0.9% 100 ML IVPB SCH (22:00)
[2021-10-06] MEDS: Doxycycline 100 MG in Sodium Chloride 0.9% 100 ML IVPB SCH (22:49)
[2021-10-07] MEDS: Labetalol HCl 100 MG/20 ML VIAL SLOW IVP PRN (03:28)
[2021-10-07 03:55] LABS: Hemoglobin 7.2 g/dL (12.0-16.0); Mean Corpuscular HGB CONC 32.3 g/dL (32.0-36.0); Mean Platelet Volume 8.1 fL (7.4-10.4); Platelet Count 147 thou/uL (130-400); RBC Distribution Width 19.9 % (11.5-14.5); Red Blood Cell (RBC) Count 2.05 mill/uL (4.20-5.40); White Blood Cell (WBC) Count 5.7 thou/uL (4.8-10.8)
[2021-10-07 04:17] LABS: Anion Gap 18 mmol/L (10-20); BUN (Urea Nitrogen) 40 mg/dL (9.8-20.1); Calc. Creatinine Clearance 7 mL/min (70-130); Calcium 7.8 mg/dL (7.8-10.44); Carbon Dioxide 23 mmol/L (23-31); Chloride 101 mmol/L (98-107); Glucose 184 mg/dL (83-110); Potassium 4.4 mmol/L (3.5-5.1); Sodium 138 mmol/L (136-145)
[2021-10-07] MEDS: HYDROcodone/Acetaminophen 5/325 mg Tablet PO PRN ×3 (05:54→20:57)
[2021-10-07] MEDS: hydrALAZINE 20 MG/ML VIAL SLOW IVP PRN (06:22)
[2021-10-07] MEDS ORDERED: methylPREDNISolone Sod Succ 40 MG VIAL IVP SCH (09:00)
[2021-10-07] MEDS ORDERED: Heparin 10,000 UNITS/ 10 ML VIAL ONE (12:36)
[2021-10-07 12:37] LABS: Hemoglobin 7.9 g/dL (12.0-16.0)
[2021-10-07] MEDS ORDERED: EPOETIN ALFA-EPBX (ESRD) 10,000 UNIT/ML VIAL SC SCH (12:45)
[2021-10-07] MEDS ORDERED: Epoetin (ESRD) 10,000 UNITS/ML VIAL SC SCH (13:00)
[2021-10-07] MEDS: Folic Acid/Vit B Comp W-C PO SCH (14:11)
[2021-10-07] MEDS: Heparin 5,000 UNITS/ML VIAL SC SCH ×2 (14:12→21:05)
[2021-10-07] MEDS: Amlodipine 10 MG TAB PO SCH (14:12)
[2021-10-07] MEDS: Doxycycline 100 MG in Sodium Chloride 0.9% 100 ML IVPB SCH ×2 (14:13→21:11)
[2021-10-07] MEDS: Lidocaine 5% Patch TD SCH (16:50)
[2021-10-07] MEDS: Atorvastatin Calcium 20 MG TAB PO SCH (20:57)
[2021-10-07] MEDS ORDERED: Cefepime 0.5 GM in Admixture Fee 1 EACH IVPB SCH (21:00)
[2021-10-07] MEDS ORDERED: Cefepime 0.5 GM in Sodium Chloride 0.9% 100 ML IVPB SCH (21:00)
[2021-10-07] MEDS: methylPREDNISolone Sod Succ 40 MG VIAL IVP SCH (21:12)
[2021-10-07] MEDS: Cefepime 0.5 GM, Admixture Fee 1 EACH in Sodium Chloride 0.9% 100 ML IVPB SCH (21:45)
[2021-10-08 01:07] LABS: Troponin I 0.038 ng/mL (< 0.028)
[2021-10-08 02:16] LABS: Bacteria/HPF 3+ HPF (None Seen); Bilirubin Negative (Negative); Blood, Urine 3+ (Negative); Calcium Oxalate Crystals 1+ HPF (None Seen); Clarity Extra Turbid (Clear); Glucose, Urine (Dipstick) 200 mg/dL (Negative); Ketone, Urine Trace mg/dL (Negative); Leukocyte 500 Leu/uL (Negative); Nitrite Negative (Negative); Protein, Urine (Dipstick) 600 mg/dL (Neg-Trace); Specific Gravity, Urine 1.028 (1.002-1.036); Urobilinogen Normal mg/dL (Less than 2); WBC/HPF Greater than 50 HPF (0-3); Yeast-Budding 2+ HPF (None Seen)
[2021-10-08 02:17] LABS: Urine Culture Reflex No No
[2021-10-08] MEDS: Transdermal Patch Removal TOP SCH (02:24)
[2021-10-08] MEDS: Labetalol HCl 100 MG/20 ML VIAL SLOW IVP PRN ×2 (02:29→19:01)
[2021-10-08 04:00] LABS: Hemoglobin 6.5 g/dL (12.0-16.0); Mean Corpuscular HGB CONC 30.6 g/dL (32.0-36.0); Mean Corpuscular Hemoglobin 33.5 pg (27.0-31.0); Mean Platelet Volume 8.1 fL (7.4-10.4); Platelet Count 150 thou/uL (130-400); RBC Distribution Width 19.5 % (11.5-14.5); Red Blood Cell (RBC) Count 1.93 mill/uL (4.20-5.40); White Blood Cell (WBC) Count 8.3 thou/uL (4.8-10.8)
[2021-10-08 04:26] LABS: Anion Gap 13 mmol/L (10-20); BUN (Urea Nitrogen) 25 mg/dL (9.8-20.1); Calc. Creatinine Clearance 11 mL/min (70-130); Calcium 8.2 mg/dL (7.8-10.44); Carbon Dioxide 28 mmol/L (23-31); Chloride 100 mmol/L (98-107); Glucose 163 mg/dL (83-110); Potassium 4.4 mmol/L (3.5-5.1); Sodium 137 mmol/L (136-145)
[2021-10-08 05:00] LABS: Troponin I 0.038 ng/mL (< 0.028)
[2021-10-08] MEDS: methylPREDNISolone Sod Succ 40 MG VIAL IVP SCH ×3 (06:45→22:47)
[2021-10-08] MEDS: Levothyroxine Sodium 100 MCG TAB PO SCH (06:45)
[2021-10-08] MEDS: Amlodipine 10 MG TAB PO SCH (09:07)
[2021-10-08] MEDS: HYDROcodone/Acetaminophen 5/325 mg Tablet PO PRN ×2 (09:07→21:44)
[2021-10-08] MEDS: guaiFENesin ER 600 MG TAB PO SCH ×2 (09:07→20:56)
[2021-10-08] MEDS: Doxycycline 100 MG in Sodium Chloride 0.9% 100 ML IVPB SCH ×2 (09:07→22:47)
[2021-10-08] MEDS: Folic Acid/Vit B Comp W-C PO SCH (09:07)
[2021-10-08] MEDS: Heparin 5,000 UNITS/ML VIAL SC SCH ×2 (09:08→20:56)
[2021-10-08 10:07] LABS: Troponin I 0.044 ng/mL (< 0.028)
[2021-10-08] MEDS ORDERED: Heparin 10,000 UNITS/ 10 ML VIAL ONE (12:43)
[2021-10-08] MEDS ORDERED: Cepastat Lozenges 1 LOZ PO PRN (13:52)
[2021-10-08] MEDS: Lidocaine 5% Patch TD SCH ×2 (15:49→15:56)
[2021-10-08] MEDS: Mometasone 200 MCG/Formoterol 5 MCG 120 PUFF INHALER INH SCH (18:40)
[2021-10-08 18:45] LABS: Hemoglobin 10.6 g/dL (12.0-16.0)
[2021-10-08] MEDS: Atorvastatin Calcium 20 MG TAB PO SCH (20:56)
[2021-10-08] MEDS: Cefepime 0.5 GM, Admixture Fee 1 EACH in Sodium Chloride 0.9% 100 ML IVPB SCH (20:56)
[2021-10-08] MEDS: tiZANidine HCl 4 MG TAB PO PRN (20:57)
[2021-10-08] MEDS: hydrALAZINE 20 MG/ML VIAL SLOW IVP PRN (22:47)
[2021-10-09 04:15] LABS: Hemoglobin 9.7 g/dL (12.0-16.0); Mean Corpuscular HGB CONC 31.5 g/dL (32.0-36.0); Mean Corpuscular Hemoglobin 32.4 pg (27.0-31.0); Mean Platelet Volume 8.2 fL (7.4-10.4); Platelet Count 149 thou/uL (130-400); RBC Distribution Width 19.2 % (11.5-14.5); Red Blood Cell (RBC) Count 2.98 mill/uL (4.20-5.40); White Blood Cell (WBC) Count 10.7 thou/uL (4.8-10.8)
[2021-10-09] MEDS: HYDROcodone/Acetaminophen 5/325 mg Tablet PO PRN (04:40)
[2021-10-09] MEDS: Transdermal Patch Removal TOP SCH (04:40)
[2021-10-09 04:42] LABS: Anion Gap 16 mmol/L (10-20); BUN (Urea Nitrogen) 32 mg/dL (9.8-20.1); Calc. Creatinine Clearance 11 mL/min (70-130); Calcium 8.4 mg/dL (7.8-10.44); Carbon Dioxide 25 mmol/L (23-31); Chloride 99 mmol/L (98-107); Glucose 148 mg/dL (83-110); Potassium 4.3 mmol/L (3.5-5.1); Sodium 136 mmol/L (136-145)
[2021-10-09 04:48] LABS: Troponin I 0.036 ng/mL (< 0.028)
[2021-10-09] MEDS: methylPREDNISolone Sod Succ 40 MG VIAL IVP SCH ×3 (05:51→22:50)
[2021-10-09] MEDS: Levothyroxine Sodium 100 MCG TAB PO SCH (05:51)
[2021-10-09] MEDS: Mometasone 200 MCG/Formoterol 5 MCG 120 PUFF INHALER INH SCH ×2 (07:00→18:24)
[2021-10-09] MEDS: Heparin 5,000 UNITS/ML VIAL SC SCH ×2 (08:35→20:18)
[2021-10-09] MEDS: guaiFENesin ER 600 MG TAB PO SCH ×2 (08:35→20:17)
[2021-10-09] MEDS: Folic Acid/Vit B Comp W-C PO SCH (08:38)
[2021-10-09] MEDS: Amlodipine 10 MG TAB PO SCH (08:38)
[2021-10-09] MEDS ORDERED: Heparin 10,000 UNITS/ 10 ML VIAL ONE (12:39)
[2021-10-09] MEDS: Doxycycline 100 MG in Sodium Chloride 0.9% 100 ML IVPB SCH ×2 (13:23→22:50)
[2021-10-09] MEDS: Lidocaine 5% Patch TD SCH (14:09)
[2021-10-09] MEDS: Cefepime 0.5 GM, Admixture Fee 1 EACH in Sodium Chloride 0.9% 100 ML IVPB SCH (20:18)
[2021-10-09] MEDS: Labetalol HCl 100 MG/20 ML VIAL SLOW IVP PRN (20:18)
[2021-10-09] MEDS: Atorvastatin Calcium 20 MG TAB PO SCH (20:18)
[2021-10-10] MEDS: Transdermal Patch Removal TOP SCH (03:20)
[2021-10-10] MEDS: HYDROcodone/Acetaminophen 5/325 mg Tablet PO PRN ×3 (05:38→18:54)
[2021-10-10] MEDS: methylPREDNISolone Sod Succ 40 MG VIAL IVP SCH ×3 (05:39→21:21)
[2021-10-10] MEDS: Levothyroxine Sodium 100 MCG TAB PO SCH (05:39)
[2021-10-10 06:24] LABS: Mean Corpuscular HGB CONC 31.3 g/dL (32.0-36.0); Mean Corpuscular Hemoglobin 32.6 pg (27.0-31.0); Mean Platelet Volume 7.9 fL (7.4-10.4); Platelet Count 152 thou/uL (130-400); RBC Distribution Width 18.4 % (11.5-14.5); Red Blood Cell (RBC) Count 3.08 mill/uL (4.20-5.40)
[2021-10-10 06:45] LABS: Anion Gap 15 mmol/L (10-20); BUN (Urea Nitrogen) 26 mg/dL (9.8-20.1); Calc. Creatinine Clearance 11 mL/min (70-130); Calcium 8.5 mg/dL (7.8-10.44); Carbon Dioxide 27 mmol/L (23-31); Chloride 101 mmol/L (98-107); Glucose 162 mg/dL (83-110); Potassium 3.7 mmol/L (3.5-5.1); Sodium 139 mmol/L (136-145)
[2021-10-10] MEDS: Mometasone 200 MCG/Formoterol 5 MCG 120 PUFF INHALER INH SCH ×2 (07:33→18:40)
[2021-10-10] MEDS: guaiFENesin ER 600 MG TAB PO SCH ×2 (08:25→21:21)
[2021-10-10] MEDS: Amlodipine 10 MG TAB PO SCH (08:25)
[2021-10-10] MEDS: Folic Acid/Vit B Comp W-C PO SCH (08:26)
[2021-10-10] MEDS: Heparin 5,000 UNITS/ML VIAL SC SCH ×2 (08:26→21:21)
[2021-10-10] MEDS: Lisinopril 10 MG TAB PO SCH (08:38)
[2021-10-10] MEDS: Doxycycline 100 MG in Sodium Chloride 0.9% 100 ML IVPB SCH ×2 (10:28→22:07)
[2021-10-10] MEDS ORDERED: Docusate 100 MG CAP PO PRN (11:08)
[2021-10-10] MEDS ORDERED: Polyethylene Glycol 3350 17 GM Packet PO PRN (11:08)
[2021-10-10] MEDS: hydrALAZINE 20 MG/ML VIAL SLOW IVP PRN (11:43)
[2021-10-10] MEDS ORDERED: Labetalol HCl 100 MG/20 ML VIAL SLOW IVP PRN (12:33)
[2021-10-10] MEDS: Labetalol HCl 100 MG/20 ML VIAL SLOW IVP PRN (13:00)
[2021-10-10] MEDS: Lidocaine 5% Patch TD SCH (13:52)
[2021-10-10] MEDS: Atorvastatin Calcium 20 MG TAB PO SCH (21:21)
[2021-10-10] MEDS: Cefepime 0.5 GM, Admixture Fee 1 EACH in Sodium Chloride 0.9% 100 ML IVPB SCH (21:33)
[2021-10-11] MEDS: Transdermal Patch Removal TOP SCH (01:20)
[2021-10-11 04:57] LABS: Anion Gap 17 mmol/L (10-20); BUN (Urea Nitrogen) 52 mg/dL (9.8-20.1); Calc. Creatinine Clearance 8 mL/min (70-130); Calcium 8.9 mg/dL (7.8-10.44); Carbon Dioxide 24 mmol/L (23-31); Chloride 98 mmol/L (98-107); Glucose 138 mg/dL (83-110); Potassium 4.4 mmol/L (3.5-5.1); Sodium 135 mmol/L (136-145)
[2021-10-11] MEDS: Levothyroxine Sodium 100 MCG TAB PO SCH (05:24)
[2021-10-11 06:44] LABS: Hemoglobin 10.2 g/dL (12.0-16.0); Mean Corpuscular HGB CONC 30.7 g/dL (32.0-36.0); Mean Corpuscular Hemoglobin 32.7 pg (27.0-31.0); Mean Platelet Volume 8.9 fL (7.4-10.4); Platelet Count 160 thou/uL (130-400); RBC Distribution Width 18.2 % (11.5-14.5); Red Blood Cell (RBC) Count 3.12 mill/uL (4.20-5.40); White Blood Cell (WBC) Count 10.6 thou/uL (4.8-10.8)
[2021-10-11] MEDS: Mometasone 200 MCG/Formoterol 5 MCG 120 PUFF INHALER INH SCH ×2 (07:25→19:14)
[2021-10-11] MEDS ORDERED: Heparin 10,000 UNITS/ 10 ML VIAL ONE (08:55)
[2021-10-11] MEDS: Folic Acid/Vit B Comp W-C PO SCH (09:19)
[2021-10-11] MEDS: Amlodipine 10 MG TAB PO SCH (09:19)
[2021-10-11] MEDS: Lisinopril 10 MG TAB PO SCH (09:20)
[2021-10-11] MEDS: methylPREDNISolone Sod Succ 40 MG VIAL IVP SCH ×2 (09:20→20:46)
[2021-10-11] MEDS: Doxycycline 100 MG in Sodium Chloride 0.9% 100 ML IVPB SCH (09:21)
[2021-10-11] MEDS: Heparin 5,000 UNITS/ML VIAL SC SCH ×2 (09:21→20:46)
[2021-10-11] MEDS: HYDROcodone/Acetaminophen 5/325 mg Tablet PO PRN (11:04)
[2021-10-11] MEDS: Lidocaine 5% Patch TD SCH (11:06)
[2021-10-11] MEDS: Atorvastatin Calcium 20 MG TAB PO SCH (20:45)
[2021-10-11] MEDS: Doxycycline 100 MG CAP PO SCH (20:45)
[2021-10-12] MEDS: HYDROcodone/Acetaminophen 5/325 mg Tablet PO PRN ×2 (00:10→17:49)
[2021-10-12] MEDS: Transdermal Patch Removal TOP SCH (02:49)
[2021-10-12] MEDS: Levothyroxine Sodium 100 MCG TAB PO SCH (05:41)
[2021-10-12] MEDS: Mometasone 200 MCG/Formoterol 5 MCG 120 PUFF INHALER INH SCH (08:14)
[2021-10-12] MEDS: Amlodipine 10 MG TAB PO SCH (10:27)
[2021-10-12] MEDS: Lisinopril 10 MG TAB PO SCH (10:27)
[2021-10-12] MEDS: Folic Acid/Vit B Comp W-C PO SCH (10:27)
[2021-10-12] MEDS: Doxycycline 100 MG CAP PO SCH (10:28)
[2021-10-12] MEDS: Heparin 5,000 UNITS/ML VIAL SC SCH (10:28)
[2021-10-12] MEDS: methylPREDNISolone Sod Succ 40 MG VIAL IVP SCH (10:29)
[2021-10-12 11:59] LABS: SARS-CoV-2 PCR by NAA Not Detected (NotDetected)
[2021-10-12] MEDS: Lidocaine 5% Patch TD SCH (14:01)
[2021-10-12 15:53] VITALS: BP 159/56; TEMP 97.7
[2021-10-15] MEDS ORDERED: methylPREDNISolone Sod Succ 40 MG VIAL IVP SCH (09:00)
== END 2021-10-12 18:14 | disposition home health service (06) | DRG 264 ==
LOC: ERS 16:45 → ERHOLD 18:38 → 2NO 21:44 → OBSVTOIN 10-06 14:53 → IMCU/EMU 10-07 00:02 → 2NO 10-08 17:54
PROVIDERS: ADMIT Family Medicine; ATTEND Internal Medicine
PROC: 0JH63XZ Insertion of Tunneled Vascular Access Device into Chest Subcutaneous Tissue and Fascia, Percutaneous Approach (ICD-10-PCS; principal; 2021-10-05)
PROC: 02HV33Z Insertion of Infusion Device into Superior Vena Cava, Percutaneous Approach (ICD-10-PCS; 2021-10-05)
PROC: B548ZZA Ultrasonography of Superior Vena Cava, Guidance (ICD-10-PCS; 2021-10-05)
PROC: B5181ZA Fluoroscopy of Superior Vena Cava using Low Osmolar Contrast, Guidance (ICD-10-PCS; 2021-10-05)
PROC: 031B0ZF Bypass Right Radial Artery to Lower Arm Vein, Open Approach (ICD-10-PCS; 2021-10-06)
PROC: 30233N1 Transfusion of Nonautologous Red Blood Cells into Peripheral Vein, Percutaneous Approach (ICD-10-PCS; 2021-10-08)
DX: T82.868A Thrombosis due to vascular prosthetic devices, implants and grafts, initial encounter (principal); N18.6 End stage renal disease; I50.33 Acute on chronic diastolic (congestive) heart failure; J18.9 Pneumonia, unspecified organism; I21.A1 Myocardial infarction type 2; I13.2 Hypertensive heart and chronic kidney disease with heart failure and with stage 5 chronic kidney disease, or end stage renal disease; R04.2 Hemoptysis; J96.11 Chronic respiratory failure with hypoxia; Z20.822 Contact with and (suspected) exposure to COVID-19; Y83.8 Other surgical procedures as the cause of abnormal reaction of the patient, or of later complication, without mention of misadventure at the time of the procedure; D72.829 Elevated white blood cell count, unspecified; E87.5 Hyperkalemia; G89.29 Other chronic pain; M54.50 Low back pain, unspecified; I77.6 Arteritis, unspecified; K21.9 Gastro-esophageal reflux disease without esophagitis; D63.1 Anemia in chronic kidney disease; I35.0 Nonrheumatic aortic (valve) stenosis; E87.6 Hypokalemia; E03.9 Hypothyroidism, unspecified; Z99.2 Dependence on renal dialysis; Z60.2 Problems related to living alone; Z88.6 Allergy status to analgesic agent; Z79.899 Other long term (current) drug therapy; Z79.52 Long term (current) use of systemic steroids; Z87.01 Personal history of pneumonia (recurrent); Z90.49 Acquired absence of other specified parts of digestive tract; Z90.89 Acquired absence of other organs; Z98.51 Tubal ligation status; Z82.49 Family history of ischemic heart disease and other diseases of the circulatory system; Z80.42 Family history of malignant neoplasm of prostate; Z99.81 Dependence on supplemental oxygen
CPT/HCPCS: 36415; 36430; 71045; 80048; 80053; 81001; 84439; 84443; 84481; 84484; 85025; 85027; 86850; 86870; 86880; 86900; 86901; 86922; 87070; 87081; 87205; 90935; 93005; 93010; 93970; 94640; 94667; 94668; 94799; 96374; 96376; 99284; C1751; C1752; C1776; C9113; G0257; G0378; J0360; J0690; J0692; J1100; J1644; J2405; J2704; J2720; J2920; J3490; J7620; P9016; Q4081; S0020; U0003; U0005

== ENCOUNTER 2022-03-07 10:17 | Inpatient (IN) | payer MEDICARE ==
[2022-03-07 10:52] LABS: #Lymphocytes 0.7 thou/uL (1.20-3.40); #Monocytes 0.6 thou/uL (0.11-0.59); #Neutrophils 4.5 thou/uL (1.40-6.50); %Basophils 0.7 % (0.0-1.0); %Eosinophils 0.4 % (0.0-10.0); %Lymphocytes 12.1 % (21.0-51.0); %Monocytes 10.9 % (0.0-10.0); %Neutrophils 75.9 % (42.0-75.0); Hemoglobin 10.9 g/dL (12.0-16.0); Mean Corpuscular HGB CONC 32.4 g/dL (32.0-36.0); Mean Corpuscular Hemoglobin 32.8 pg (27.0-31.0); Mean Platelet Volume 8.8 fL (7.4-10.4); Platelet Count 189 thou/uL (130-400); RBC Distribution Width 13.1 % (11.5-14.5); Red Blood Cell (RBC) Count 3.31 mill/uL (4.20-5.40); White Blood Cell (WBC) Count 5.9 thou/uL (4.8-10.8)
[2022-03-07 11:10] LABS: ALT (SGPT) 14 U/L (8-55); AST (SGOT) 25 U/L (5-34); Albumin 4.3 g/dL (3.4-4.8); Alkaline Phosphatase 110 U/L (40-110); Anion Gap 17 mmol/L (10-20); BUN (Urea Nitrogen) 23 mg/dL (9.8-20.1); Bilirubin, Total 0.7 mg/dL (0.2-1.2); Calc. Creatinine Clearance 0 mL/min (70-130); Calcium 9.9 mg/dL (7.8-10.44); Carbon Dioxide 24 mmol/L (23-31); Chloride 102 mmol/L (98-107); Estimated GFR 12; Globulin 3.8 g/dL (2.4-3.5); Glucose 97 mg/dL (83-110); Potassium 4.1 mmol/L (3.5-5.1); Protein, Total 8.1 g/dL (5.8-8.1); Sodium 139 mmol/L (136-145)
[2022-03-07 15:33] LABS: Magnesium 2.2 mg/dL (1.6-2.6)
[2022-03-07] MEDS ORDERED: Acetaminophen 500 MG TAB ONE (16:15)
[2022-03-07] MEDS ORDERED: Ondansetron PF 4 MG/2 ML Vial IVP PRN (16:38)
[2022-03-07] MEDS ORDERED: Ondansetron ODT 4 MG TAB PO PRN (16:38)
[2022-03-07 17:11] LABS: Hemoglobin 9.8 g/dL (12.0-16.0)
[2022-03-07] MEDS: Acetaminophen 325 MG TAB PO PRN (20:42)
[2022-03-07] MEDS: Pantoprazole 80 MG in Sodium Chloride 0.9% 100 ML IVPB SCH (22:25)
[2022-03-07 22:56] LABS: Hemoglobin 9.1 g/dL (12.0-16.0)
[2022-03-08] MEDS ORDERED: Zolpidem Tartrate 5 MG TAB PO SCH ×2 (01:00→21:00)
[2022-03-08] MEDS: Acetaminophen 325 MG TAB PO PRN ×4 (01:04→19:50)
[2022-03-08 01:12] LABS: SARS-CoV-2 NAA Rapid Test Not Detected (NotDetected)
[2022-03-08 01:53] VITALS: BMI 21.4
[2022-03-08 06:36] LABS: Anion Gap 15 mmol/L (10-20); BUN (Urea Nitrogen) 50 mg/dL (9.8-20.1); Calc. Creatinine Clearance 6 mL/min (70-130); Calcium 9.7 mg/dL (7.8-10.44); Carbon Dioxide 26 mmol/L (23-31); Chloride 100 mmol/L (98-107); Estimated GFR 7; Glucose 85 mg/dL (83-110); Potassium 3.9 mmol/L (3.5-5.1); Sodium 137 mmol/L (136-145)
[2022-03-08 06:43] LABS: Hemoglobin 9.3 g/dL (12.0-16.0); Mean Corpuscular HGB CONC 32.2 g/dL (32.0-36.0); Mean Corpuscular Hemoglobin 32.6 pg (27.0-31.0); Mean Platelet Volume 9.3 fL (7.4-10.4); Platelet Count 167 thou/uL (130-400); RBC Distribution Width 13.1 % (11.5-14.5); Red Blood Cell (RBC) Count 2.85 mill/uL (4.20-5.40); White Blood Cell (WBC) Count 4.6 thou/uL (4.8-10.8)
[2022-03-08 07:19] LABS: Band 1 % (5-11); Eosinophils 1 % (0-10); Lymphocytes 20 % (21-51); MDiff Complete? YES; Monocytes 14 % (0-10); Neutrophil 61 % (42-75); Platelet Morphology Comment Appears Adequate; Polychromasia SLIGHT = 2-3 cells (100X) (0-2/hpf); Reactive Lymphocytes 2 % (0-10)
[2022-03-08] MEDS: Pantoprazole 80 MG in Sodium Chloride 0.9% 100 ML IVPB SCH ×2 (08:43→19:48)
[2022-03-08] MEDS ORDERED: Ferric Citrate [Auryxia] 210 MG Tablet PO SCH (17:00)
[2022-03-08] MEDS ORDERED: Atorvastatin Calcium 20 MG TAB PO SCH (21:00)
[2022-03-09] MEDS: Acetaminophen 325 MG TAB PO PRN ×3 (05:07→17:50)
[2022-03-09] MEDS ORDERED: Levothyroxine Sodium 100 MCG TAB PO SCH (06:00)
[2022-03-09 06:30] LABS: #Eosinphils 0.1 thou/uL (0.0-0.7); #Lymphocytes 0.8 thou/uL (1.20-3.40); #Monocytes 0.6 thou/uL (0.11-0.59); #Neutrophils 3.3 thou/uL (1.40-6.50); %Basophils 0.7 % (0.0-1.0); %Eosinophils 1.9 % (0.0-10.0); %Lymphocytes 15.9 % (21.0-51.0); %Monocytes 13.1 % (0.0-10.0); %Neutrophils 68.4 % (42.0-75.0); Hemoglobin 8.9 g/dL (12.0-16.0); Mean Corpuscular HGB CONC 32.7 g/dL (32.0-36.0); Mean Corpuscular Hemoglobin 32.5 pg (27.0-31.0); Mean Corpuscular Volume 99.3 fL (78.0-98.0); Mean Platelet Volume 9.4 fL (7.4-10.4); Platelet Count 162 thou/uL (130-400); Red Blood Cell (RBC) Count 2.75 mill/uL (4.20-5.40); White Blood Cell (WBC) Count 4.9 thou/uL (4.8-10.8)
[2022-03-09] MEDS: Pantoprazole 80 MG in Sodium Chloride 0.9% 100 ML IVPB SCH (07:20)
[2022-03-09 07:40] VITALS: TEMP 98.1
[2022-03-09 07:45] LABS: Iron 169 ug/dL (50-170); Iron Binding Capacity, Total 166 mcg/dL (265-497)
[2022-03-09 08:01] LABS: Anion Gap 17 mmol/L (10-20); BUN (Urea Nitrogen) 66 mg/dL (9.8-20.1); Calc. Creatinine Clearance 4 mL/min (70-130); Calcium 9.2 mg/dL (7.8-10.44); Carbon Dioxide 23 mmol/L (23-31); Chloride 99 mmol/L (98-107); Estimated GFR 4; Glucose 98 mg/dL (83-110); Iron 164 ug/dL (50-170); Iron Binding Capacity, Total 170 mcg/dL (265-497); Potassium 4.4 mmol/L (3.5-5.1); Sodium 135 mmol/L (136-145)
[2022-03-09] MEDS ORDERED: Amlodipine 5 MG TAB PO SCH (09:00)
[2022-03-09] MEDS ORDERED: Gabapentin 100 MG CAP PO SCH (09:00)
[2022-03-09] MEDS ORDERED: Folic Acid/Vit B Comp W-C PO SCH (09:00)
[2022-03-09 11:47] LABS: Hemoglobin 9.3 g/dL (12.0-16.0)
[2022-03-09 17:50] VITALS: BP 123/74
== END 2022-03-09 19:25 | disposition home or self-care (01) | DRG 811 ==
LOC: ERS 10:17 → ERHOLD 16:08 → T4-B 19:53 → OBSVTOIN 03-09 14:53
PROVIDERS: ADMIT Hospitalist; ATTEND Internal Medicine
DX: D50.9 Iron deficiency anemia, unspecified (principal); N18.6 End stage renal disease; I13.2 Hypertensive heart and chronic kidney disease with heart failure and with stage 5 chronic kidney disease, or end stage renal disease; I50.32 Chronic diastolic (congestive) heart failure; E87.1 Hypo-osmolality and hyponatremia; K21.9 Gastro-esophageal reflux disease without esophagitis; I25.10 Atherosclerotic heart disease of native coronary artery without angina pectoris; I35.0 Nonrheumatic aortic (valve) stenosis; D63.1 Anemia in chronic kidney disease; I77.6 Arteritis, unspecified; Z20.822 Contact with and (suspected) exposure to COVID-19; Z87.01 Personal history of pneumonia (recurrent); Z99.2 Dependence on renal dialysis; Z79.890 Hormone replacement therapy; Z79.899 Other long term (current) drug therapy; Z90.49 Acquired absence of other specified parts of digestive tract; Z98.51 Tubal ligation status; Z90.710 Acquired absence of both cervix and uterus
CPT/HCPCS: 36415; 80048; 80053; 82274; 82728; 83540; 83550; 83735; 84443; 84484; 85025; 86850; 86870; 86880; 86900; 86901; 86905; 86922; 90935; 93005; 96365; 96366; C9113; G0257; G0378; J3490

== ENCOUNTER 2022-04-25 09:48 | Outpatient (CLI) | payer MEDICARE | END 2022-04-25 09:49 | disposition home or self-care (01) | LOC: SCSRAD 09:48 | PROVIDERS: ATTEND Internal Medicine Rheumatology | DX: R07.81 Pleurodynia (principal) ==

== ENCOUNTER 2022-06-05 19:35 | Observation (INO) | payer MEDICARE, OTHER ==
[2022-06-05 21:30] LABS: #Eosinphils 0.1 thou/uL (0.0-0.7); #Lymphocytes 0.9 thou/uL (1.20-3.40); #Monocytes 0.5 thou/uL (0.11-0.59); #Neutrophils 4.7 thou/uL (1.40-6.50); %Basophils 0.2 % (0.0-1.0); %Eosinophils 0.9 % (0.0-10.0); %Lymphocytes 14.1 % (21.0-51.0); %Monocytes 8.8 % (0.0-10.0); %Neutrophils 76.1 % (42.0-75.0); Hemoglobin 13.3 g/dL (12.0-16.0); Mean Corpuscular HGB CONC 33.7 g/dL (32.0-36.0); Mean Corpuscular Hemoglobin 33.6 pg (27.0-31.0); Mean Corpuscular Volume 99.9 fl (78.0-98.0); Mean Platelet Volume 9.1 fL (7.4-10.4); Platelet Count 131 10x3/uL (130-400); RBC Distribution Width 12.3 % (11.5-14.5); Red Blood Cell (RBC) Count 3.95 mill/uL (4.20-5.40); White Blood Cell (WBC) Count 6.2 10x3/uL (4.8-10.8)
[2022-06-05 21:51] LABS: ALT (SGPT) 17 U/L (8-55); AST (SGOT) 23 U/L (5-34); Albumin 4.4 g/dL (3.4-4.8); Alkaline Phosphatase 165 U/L (40-110); Anion Gap 19 mmol/L (10-20); BUN (Urea Nitrogen) 75 mg/dL (9.8-20.1); Bilirubin, Total 0.7 mg/dL (0.2-1.2); Calc. Creatinine Clearance 0 mL/min (70-130); Calcium 10.6 mg/dL (7.8-10.44); Carbon Dioxide 23 mmol/L (23-31); Chloride 99 mmol/L (98-107); Estimated GFR 4; Globulin 3.2 g/dL (2.4-3.5); Glucose 110 mg/dL (83-110); Magnesium 2.4 mg/dL (1.6-2.6); Potassium 4.9 mmol/L (3.5-5.1); Protein, Total 7.6 g/dL (5.8-8.1); Sodium 136 mmol/L (136-145)
[2022-06-06] MEDS ORDERED: hydrALAZINE 20 MG/ML VIAL SLOW IVP PRN (01:37)
[2022-06-06 05:17] LABS: #Lymphocytes 0.9 thou/uL (1.20-3.40); #Monocytes 0.5 thou/uL (0.11-0.59); #Neutrophils 3.9 thou/uL (1.40-6.50); %Basophils 0.3 % (0.0-1.0); %Eosinophils 0.9 % (0.0-10.0); %Lymphocytes 16.4 % (21.0-51.0); %Monocytes 9.6 % (0.0-10.0); %Neutrophils 72.8 % (42.0-75.0); Hemoglobin 12.4 g/dL (12.0-16.0); Mean Corpuscular HGB CONC 33.4 g/dL (32.0-36.0); Mean Corpuscular Hemoglobin 33.4 pg (27.0-31.0); Mean Platelet Volume 9.1 fL (7.4-10.4); Platelet Count 123 10x3/uL (130-400); RBC Distribution Width 12.4 % (11.5-14.5); White Blood Cell (WBC) Count 5.4 10x3/uL (4.8-10.8)
[2022-06-06 05:33] LABS: Anion Gap 17 mmol/L (10-20); BUN (Urea Nitrogen) 75 mg/dL (9.8-20.1); Calc. Creatinine Clearance 4 mL/min (70-130); Calcium 9.5 mg/dL (7.8-10.44); Carbon Dioxide 23 mmol/L (23-31); Chloride 102 mmol/L (98-107); Estimated GFR 4; Glucose 90 mg/dL (83-110); Magnesium 2.3 mg/dL (1.6-2.6); Phosphorus 5.4 mg/dL (2.3-4.7); Potassium 4.8 mmol/L (3.5-5.1); Sodium 137 mmol/L (136-145)
[2022-06-06] MEDS: Levothyroxine Sodium 100 MCG TAB PO SCH (06:40)
[2022-06-06] MEDS ORDERED: Amlodipine 10 MG TAB PO SCH (09:00)
[2022-06-06] MEDS: valACYclovir 500 MG TAB PO SCH (09:42)
[2022-06-06] MEDS ORDERED: Heparin 10,000 UNITS/ 10 ML VIAL ONE (10:09)
[2022-06-06] MEDS: Heparin 5,000 UNITS/ML VIAL SC SCH ×3 (10:24→20:22)
[2022-06-06] MEDS ORDERED: traMADol HCl 50 MG TAB PO PRN (10:33)
[2022-06-06 19:09] VITALS: BMI 22.1
[2022-06-06] MEDS ORDERED: Zolpidem Tartrate 5 MG TAB PO SCH (21:00)
[2022-06-06] MEDS ORDERED: Atorvastatin Calcium 20 MG TAB PO SCH (21:00)
[2022-06-07] MEDS: Levothyroxine Sodium 100 MCG TAB PO SCH (06:36)
[2022-06-07] MEDS ORDERED: Folic Acid/Vit B Comp W-C PO SCH (09:00)
[2022-06-07] MEDS ORDERED: Cholecalciferol 1,000 UNITS (25 MCG) TAB PO SCH (09:00)
[2022-06-07] MEDS ORDERED: Amlodipine 5 MG TAB PO SCH (09:00)
[2022-06-07] MEDS ORDERED: Allopurinol 100 MG TAB PO SCH (09:00)
[2022-06-07] MEDS: valACYclovir 500 MG TAB PO SCH (09:05)
[2022-06-07] MEDS: Heparin 5,000 UNITS/ML VIAL SC SCH ×2 (09:26→16:44)
[2022-06-07 15:14] LABS: Bilirubin Negative (Negative); Blood, Urine 1+ (Negative); CAUTI Indications for Culture Alt mental st,lethar; Clarity Turbid (Clear); Glucose, Urine (Dipstick) 50 mg/dL (Negative); Ketone, Urine Negative (Negative); Leukocyte 500 Leu/uL (Negative); Nitrite Negative (Negative); Protein, Urine (Dipstick) 200 mg/dL (Neg-Trace); Specific Gravity, Urine 1.009 (1.002-1.036); Transitional Epithelial 0-3 HPF (None Seen); Urobilinogen Normal mg/dL (Less than 2); WBC/HPF Greater than 50 HPF (0-3); pH, Urine 7.5 (5.0-9.0)
[2022-06-07 15:16] LABS: Bacteria/HPF 1+ HPF (None Seen); Urine Culture Reflex Yes Yes
[2022-06-07 16:23] VITALS: BP 129/81; TEMP 97.5
== END 2022-06-07 19:30 | disposition home or self-care (01) ==
LOC: ERS 19:35 → NEURO 06-06 01:15 → ERHOLD 06-06 01:19 → NEURO 06-06 12:34
PROVIDERS: ADMIT Internal Medicine; ATTEND Internal Medicine
DX: R41.0 Disorientation, unspecified (principal); R56.9 Unspecified convulsions; B02.9 Zoster without complications; I13.2 Hypertensive heart and chronic kidney disease with heart failure and with stage 5 chronic kidney disease, or end stage renal disease; N18.6 End stage renal disease; I50.33 Acute on chronic diastolic (congestive) heart failure; D63.1 Anemia in chronic kidney disease; E03.9 Hypothyroidism, unspecified; I35.0 Nonrheumatic aortic (valve) stenosis; Z66 Do not resuscitate; Z79.890 Hormone replacement therapy; Z79.899 Other long term (current) drug therapy; Z88.8 Allergy status to other drugs, medicaments and biological substances; Z99.2 Dependence on renal dialysis; Z20.822 Contact with and (suspected) exposure to COVID-19
CPT/HCPCS: 70450; 70551; 71045; 80048; 80053; 81001; 83735 ×2; 83880; 84100; 84484; 85025 ×2; 87040; 87086; 93005; 95816; 95819; 95957; 96372 ×2; G0378 ×3; U0003; U0005; 36415; 90935; G0257; J1644

== ENCOUNTER 2023-01-12 14:56 | Outpatient (CLI) | payer OTHER | END 2023-01-12 14:57 | disposition home or self-care (01) | LOC: ULT 14:56 | PROVIDERS: ATTEND Internal Medicine Nephrology | DX: R09.89 Other specified symptoms and signs involving the circulatory and respiratory systems (principal) | CPT/HCPCS: 93880 ==

== ENCOUNTER 2023-03-05 13:41 | Emergency (ER) | payer OTHER ==
[2023-03-05 14:36] LABS: #Eosinphils 0.1 thou/uL (0.0-0.7); #Monocytes 0.8 thou/uL (0.11-0.59); #Neutrophils 7.4 thou/uL (1.40-6.50); %Basophils 0.2 % (0.0-1.0); %Eosinophils 1.1 % (0.0-10.0); %Lymphocytes 6.4 % (21.0-51.0); %Monocytes 8.5 % (0.0-10.0); %Neutrophils 83.6 % (42.0-75.0); Hematocrit 32.2 % (36.0-47.0); Hemoglobin 10.5 g/dL (12.0-16.0); Mean Corpuscular HGB CONC 32.6 g/dL (32.0-36.0); Mean Corpuscular Hemoglobin 33.4 pg (27.0-31.0); Mean Corpuscular Volume 102.5 fl (78.0-98.0); Mean Platelet Volume 10.7 fL (7.4-10.4); Platelet Count 212 10x3/uL (130-400); RBC Distribution Width 14.6 % (11.5-14.5); Red Blood Cell (RBC) Count 3.14 mill/uL (4.20-5.40); White Blood Cell (WBC) Count 8.8 10x3/uL (4.8-10.8)
[2023-03-05 14:58] LABS: ALT (SGPT) 12 U/L (8-55); AST (SGOT) 13 U/L (5-34); Albumin 4.2 g/dL (3.4-4.8); Alkaline Phosphatase 133 U/L (40-110); Anion Gap 19 mmol/L (10-20); BUN (Urea Nitrogen) 65 mg/dL (9.8-20.1); Bilirubin, Total 0.5 mg/dL (0.2-1.2); Calc. Creatinine Clearance 0 mL/min (70-130); Calcium 9.6 mg/dL (7.8-10.44); Carbon Dioxide 25 mmol/L (23-31); Chloride 99 mmol/L (98-107); Estimated GFR 4; Globulin 2.9 g/dL (2.4-3.5); Glucose 107 mg/dL (83-110); Potassium 4.8 mmol/L (3.5-5.1); Protein, Total 7.1 g/dL (5.8-8.1); Sodium 138 mmol/L (136-145)
[2023-03-05 15:20] LABS: Troponin I 0.011 ng/mL (< 0.028)
[2023-03-05] MEDS ORDERED: Furosemide 100 MG/10 ML VIAL ONE (16:20)
== END 2023-03-05 17:46 | disposition home or self-care (01) ==
LOC: ERS 13:41
DX: J81.0 Acute pulmonary edema (principal); I12.0 Hypertensive chronic kidney disease with stage 5 chronic kidney disease or end stage renal disease; N18.6 End stage renal disease; E03.9 Hypothyroidism, unspecified; Z79.899 Other long term (current) drug therapy
CPT/HCPCS: 71045; 80053; 83605; 83880; 84484; 85025; 86140; 93005; 96374; J1940